=== PATIENT | male | born 1965 | race African-American/Black ===

== ENCOUNTER 2018-05-28 17:38 | Inpatient (IN) | payer OTHER ==
[~2018-05-28] VITALS: Ht 163.8 cm; Wt 87.6 kg
[2018-05-28] MEDS ORDERED: SODIUM CHLORIDE 0.9% 1,000 ML IV ONE ×2 (18:07→19:07)
[2018-05-28] MEDS ORDERED: ONDANSETRON HCL 4MG/2ML INJ IV STA (18:07)
[2018-05-28 18:57] LABS: BASOPHILS % 0.4 % (0.0-2.0); HEMOGLOBIN. 18.8 g/dL (14.0-18.0); LYMPHOCYTES % 7.1 % (20.0-50.0); MEAN CORPUSCULAR HEMOGLOBIN 27.7 pg (28.0-32.0); MEAN CORPUSCULAR VOLUME 88.8 fL (80.0-94.0); MEAN PLATELET VOLUME 10.8 fl (7.4-10.4); MONOCYTES % 2.7 % (2.0-8.0); NEUTROPHILS % 89.8 % (40.0-76.0); PLATELET 289 x1000/uL (130-400); RED BLOOD CELL COUNT 6.78 mill/uL (4.7-6.1); RED CELL DISTRIBUTION WIDTH 15.5 % (11.6-14.6)
[2018-05-28 19:00] LABS: CHLORIDE 109 mEq/L (98-107)
[2018-05-28 19:01] LABS: INR 1.1; PARTIAL THROMBOPLASTIN TIME 24.8 sec (23.4-31.0); PROTHROMBIN TIME 10.6 sec (9.1-11.1)
[2018-05-28 19:03] LABS: HEMATOCRIT. 60.2 % (42.0-52.0)
[2018-05-28 19:04] LABS: ETHANOL BLOOD < 10 mg/dL
[2018-05-28 19:07] LABS: LDL CHOLESTEROL 230 mg/dL (5-100)
[2018-05-28 19:08] LABS: CREATINE KINASE 717 IU/L (39-308)
[2018-05-28] MEDS ORDERED: INSULIN REGULAR (HUMULIN R) 300UNITS/3ML IV ONE (19:15)
[2018-05-28 19:43] LABS: BG BASE EXCESS -14.1 mmol/L (-2.0-2.0); BG CARBOXYHEMOGLOBIN 0.3 % (0.5-1.5); BG DEOXYHEMOGLOBIN 4.1 % (0.0-5.0); BG FRACTION INSPIRED OXYGEN 21; BG HCO3 ACT 10.9 mmol/L (22.0-26.0); BG METHEMOGLOBIN 0.7 % (0.0-1.5); BG OXYGEN SATURATION 95.9 % (92.0-98.5); BG OXYHEMOGLOBIN 94.9 % (94.0-97.0); BG PCO2 25.9 mmHg (35.0-45.0); BG PH 7.243 (7.350-7.450); BG PO2 89.9 mmHg (75.0-100.0); BG SAMPLE SITE RIGHT BRACHIAL; BG TOTAL HEMOGLOBIN 19.7 g/dL (12.0-18.0); BG VENT MODE ROOM AIR
[2018-05-28 20:30] VITALS: BP 158/90
[2018-05-28 20:30] LABS: CLARITY URINE CLEAR (CLEAR); COLOR URINE YELLOW (YELLOW); KETONES URINE 3+ (NEGATIVE); LEUKOCYTE ESTERASE URINE NEGATIVE (NEGATIVE); NITRITE URINE NEGATIVE (NEGATIVE); OCCULT BLOOD URINE 3+ (NEGATIVE); PROTEIN URINE 2+ (NEGATIVE); SPECIFIC GRAVITY URINE 1.029 (1.005-1.030); UROBILINOGEN URINE 0.2 E.U./dL (0.2-1.0)
[2018-05-28] MEDS ORDERED: INSULIN REGULAR (DRIP) 100 UNITS in SODIUM CHLORIDE 0.9% 100 ML IV ONE (20:30)
[2018-05-28] MEDS ORDERED: INSULIN REGULAR (DRIP) 100 UNITS in SODIUM CHLORIDE 0.9% 99 ML IV NR (20:38)
[2018-05-28 20:52] LABS: *AMPHETAMINES SCREEN URINE NEGATIVE (NEGATIVE); *BARBITURATES SCREEN URINE NEGATIVE (NEGATIVE)
[2018-05-28 20:53] LABS: *BENZODIAZEPINES SCREEN URINE NEGATIVE (NEGATIVE); *COCAINE SCREEN URINE NEGATIVE (NEGATIVE); CANNABINOID URINE SCREEN NEGATIVE (NEGATIVE); METHADONE URINE SCREEN NEGATIVE (NEGATIVE); OPIATES URINE SCREEN NEGATIVE (NEGATIVE); PHENCYCLIDINE URINE SCREEN NEGATIVE (NEGATIVE)
[2018-05-28 22:30] VITALS: BP_SYST 158; BP_SYST 168; BP_DIAS 116; BP_DIAS 90
[2018-05-28 23:00] VITALS: BP 135/103
[2018-05-28 23:30] VITALS: BP 147/90
[2018-05-28] MEDS ORDERED: SODIUM CHLORIDE 0.9% 1,000 ML IV SCH (23:35)
[2018-05-28] MEDS ORDERED: ONDANSETRON HCL 4MG/2ML INJ IV PRN (23:45)
[2018-05-28] MEDS ORDERED: DEXT 5%/0.9% NACL 1,000 ML IV PRN (23:45)
[2018-05-28] MEDS ORDERED: IPRATROPIUM/ALBUTEROL 0.5-3(2.5)MG/3ML NEB INH PRN (23:45)
[2018-05-28] MEDS ORDERED: INSULIN REGULAR (DRIP) 100 UNITS in SODIUM CHLORIDE 0.9% 100 ML IV SCH (23:45)
[2018-05-28] MEDS ORDERED: DEXT 5%/0.9% NACL KCL 20MEQ/L 1,000 ML IV PRN (23:45)
[2018-05-29] VITALS (54 sets, daily range): BP systolic 113–188; BP diastolic 42–115
[2018-05-29 00:59] LABS: PHOSPHORUS 3.1 mg/dL (2.5-4.9)
[2018-05-29] MEDS: LORAZEPAM 0.5MG TABLET PO PRN ×2 (01:02→09:19)
[2018-05-29 02:44] LABS: CHLORIDE 127 mEq/L (98-107)
[2018-05-29] MEDS ORDERED: INSULIN REGULAR (DRIP) 100 UNITS in SODIUM CHLORIDE 0.9% 100 ML IV SCH (03:12)
[2018-05-29] MEDS ORDERED: DEXTROSE 50% WATER 50ML SYRINGE IV PRN ×3 (03:15→09:30)
[2018-05-29] MEDS: BLOOD SUGAR DIAGNOSTIC STRIP TEST SCH ×10 (04:48→21:00)
[2018-05-29 06:18] LABS: BASOPHILS % 0.5 % (0.0-2.0); HEMATOCRIT. 56.1 % (42.0-52.0); HEMOGLOBIN. 18.2 g/dL (14.0-18.0); LYMPHOCYTES % 9.5 % (20.0-50.0); MEAN CORPUSCULAR HEMOGLOBIN 27.6 pg (28.0-32.0); MEAN CORPUSCULAR VOLUME 84.8 fL (80.0-94.0); MEAN PLATELET VOLUME 10.2 fl (7.4-10.4); MONOCYTES % 6.3 % (2.0-8.0); NEUTROPHILS % 83.7 % (40.0-76.0); PLATELET 265 x1000/uL (130-400); RED BLOOD CELL COUNT 6.62 mill/uL (4.7-6.1); RED CELL DISTRIBUTION WIDTH 14.4 % (11.6-14.6)
[2018-05-29 06:25] LABS: CHLORIDE 134 mEq/L (98-107)
[2018-05-29 06:40] LABS: LDL CHOLESTEROL 200 mg/dL (5-100)
[2018-05-29 06:42] LABS: HDL CHOLESTEROL 51 mg/dL (40-59)
[2018-05-29 06:48] LABS: CREATINE KINASE MB FRACTION 1.3 ng/mL (0.5-3.6)
[2018-05-29 06:56] LABS: CREATINE KINASE 2875 IU/L (39-308)
[2018-05-29] MEDS ORDERED: SODIUM BICARBONATE 8.4% 1 MEQ/ML 50ML SYR IV SCH (07:15)
[2018-05-29] MEDS: DEXT 5%/0.2% NACL 1,000 ML IV SCH ×2 (07:48→13:45)
[2018-05-29] MEDS ORDERED: PNEUMOCOCCAL 23-VAL P-SAC VAC 0.5 ML IM ONE (08:00)
[2018-05-29] MEDS: ENOXAPARIN 40MG/0.4ML SYR SUBCUT SCH (09:27)
[2018-05-29] MEDS ORDERED: LORAZEPAM 2MG/ML CPJ IV NR ×2 (09:30→11:00)
[2018-05-29 09:39] LABS: BG CARBOXYHEMOGLOBIN 0.6 % (0.5-1.5); BG DEOXYHEMOGLOBIN 2.3 % (0.0-5.0); BG FRACTION INSPIRED OXYGEN 28; BG HCO3 ACT 27.6 mmol/L (22.0-26.0); BG METHEMOGLOBIN 0.4 % (0.0-1.5); BG OXYGEN SATURATION 97.7 % (92.0-98.5); BG OXYHEMOGLOBIN 96.7 % (94.0-97.0); BG PCO2 42.3 mmHg (35.0-45.0); BG PH 7.433 (7.350-7.450); BG PO2 99.5 mmHg (75.0-100.0); BG SAMPLE SITE RIGHT RADIAL; BG TOTAL HEMOGLOBIN 16.9 g/dL (12.0-18.0); BG VENT MODE NASAL CANNULA
[2018-05-29 09:51] LABS: CHLORIDE 134 mEq/L (98-107)
[2018-05-29 10:09] LABS: T4 FREE 1.12 ng/dL (0.76-1.46)
[2018-05-29] MEDS: AMLODIPINE 5MG TABLET PO SCH ×2 (11:15→21:16)
[2018-05-29] MEDS: INSULIN LISPRO 100 UNITS/ML SUBCUT SCH ×3 (12:00→21:00)
[2018-05-29] MEDS ORDERED: INSULIN LISPRO 100 UNITS/ML SUBCUT SCH (12:00)
[2018-05-29] MEDS: INSULIN GLARGINE UD 100 UNITS/ML SYR SUBCUT SCH ×2 (13:32→21:17)
[2018-05-29 13:44] LABS: CHLORIDE 134 mEq/L (98-107)
[2018-05-29] MEDS: LOSARTAN POTASSIUM 50 MG TABLET PO SCH ×2 (14:39→21:16)
[2018-05-29] MEDS: CLONIDINE 0.1MG TABLET PO PRN (14:40)
[2018-05-29 15:22] LABS: CHLORIDE 134 mEq/L (98-107)
[2018-05-29 15:32] LABS: CREATINE KINASE MB FRACTION 2.6 ng/mL (0.5-3.6)
[2018-05-29 15:43] LABS: CREATINE KINASE 6871 IU/L (39-308)
[2018-05-29] MEDS: DEXTROSE 5% WATER 1,000 ML IV SCH ×2 (17:29→23:05)
[2018-05-29] MEDS: NICOTINE 21MG PATCH TD SCH (21:16)
[2018-05-30] VITALS (39 sets, daily range): BP systolic 82–165; BP diastolic 17–84
[2018-05-30] MEDS: BLOOD SUGAR DIAGNOSTIC STRIP TEST SCH ×4 (06:21→21:28)
[2018-05-30] MEDS ORDERED: INSULIN LISPRO 100 UNITS/ML SUBCUT NR ×2 (07:00→10:45)
[2018-05-30 07:04] LABS: BASOPHILS % 0.7 % (0.0-2.0); HEMATOCRIT. 47.1 % (42.0-52.0); HEMOGLOBIN. 15.1 g/dL (14.0-18.0); MEAN CORPUSCULAR HEMOGLOBIN 27.4 pg (28.0-32.0); MEAN CORPUSCULAR VOLUME 85.7 fL (80.0-94.0); MEAN PLATELET VOLUME 10.2 fl (7.4-10.4); MONOCYTES % 5.4 % (2.0-8.0); NEUTROPHILS % 82.9 % (40.0-76.0); PLATELET 195 x1000/uL (130-400); RED CELL DISTRIBUTION WIDTH 14.6 % (11.6-14.6)
[2018-05-30] MEDS: DEXTROSE 5% WATER 1,000 ML IV SCH (07:14)
[2018-05-30] MEDS: INSULIN LISPRO 100 UNITS/ML SUBCUT SCH ×6 (07:15→21:35)
[2018-05-30 07:17] LABS: PHOSPHORUS 3.3 mg/dL (2.5-4.9)
[2018-05-30] MEDS ORDERED: SODIUM CHLORIDE 0.45% 1,000 ML IV SCH (07:30)
[2018-05-30] MEDS: AMLODIPINE 5MG TABLET PO SCH ×2 (08:16→21:00)
[2018-05-30] MEDS: NICOTINE 21MG PATCH TD SCH (08:16)
[2018-05-30] MEDS: CLONIDINE 0.1MG TABLET PO PRN (08:16)
[2018-05-30] MEDS: LOSARTAN POTASSIUM 50 MG TABLET PO SCH ×2 (08:16→21:00)
[2018-05-30] MEDS: ENOXAPARIN 40MG/0.4ML SYR SUBCUT SCH (08:25)
[2018-05-30] MEDS: SODIUM BICARBONATE 50 MEQ in SODIUM CHLORIDE 0.45% 1,000 ML IV SCH ×2 (09:18→18:38)
[2018-05-30] MEDS: INSULIN GLARGINE UD 100 UNITS/ML SYR SUBCUT SCH ×2 (10:00→21:35)
[2018-05-30] MEDS ORDERED: INFLUENZA VIRUS VACCINE(AFLURIA) 0.5ML SYR IM ONE (15:30)
[2018-05-30] MEDS: METOPROLOL TARTRATE 50MG TABLET PO SCH (21:00)
[2018-05-31] VITALS (7 sets, daily range): BP systolic 108–147; BP diastolic 60–95
[2018-05-31] MEDS: SODIUM BICARBONATE 50 MEQ in SODIUM CHLORIDE 0.45% 1,000 ML IV SCH (04:46)
[2018-05-31 06:49] LABS: BASOPHILS % 0.5 % (0.0-2.0); EOSINOPHILS % 0.5 % (0.0-5.0); HEMATOCRIT. 41.8 % (42.0-52.0); HEMOGLOBIN. 13.6 g/dL (14.0-18.0); MEAN CORPUSCULAR HEMOGLOBIN 27.7 pg (28.0-32.0); MEAN CORPUSCULAR VOLUME 85.1 fL (80.0-94.0); MEAN PLATELET VOLUME 9.8 fl (7.4-10.4); MONOCYTES % 7.3 % (2.0-8.0); NEUTROPHILS % 67.7 % (40.0-76.0); PLATELET 144 x1000/uL (130-400); RED BLOOD CELL COUNT 4.91 mill/uL (4.7-6.1); RED CELL DISTRIBUTION WIDTH 13.8 % (11.6-14.6)
[2018-05-31] MEDS: BLOOD SUGAR DIAGNOSTIC STRIP TEST SCH ×4 (07:20→21:22)
[2018-05-31] MEDS: AMLODIPINE 5MG TABLET PO SCH (09:00)
[2018-05-31] MEDS: LOSARTAN POTASSIUM 50 MG TABLET PO SCH (09:00)
[2018-05-31] MEDS: METOPROLOL TARTRATE 50MG TABLET PO SCH ×2 (09:00→21:20)
[2018-05-31] MEDS: INSULIN LISPRO 100 UNITS/ML SUBCUT SCH ×7 (09:13→21:21)
[2018-05-31] MEDS: NICOTINE 21MG PATCH TD SCH (09:16)
[2018-05-31] MEDS: ENOXAPARIN 40MG/0.4ML SYR SUBCUT SCH (09:16)
[2018-05-31] MEDS: INSULIN GLARGINE UD 100 UNITS/ML SYR SUBCUT SCH ×2 (10:57→21:22)
[2018-05-31] MEDS: SODIUM CHLORIDE 0.45% 1,000 ML IV SCH (10:59)
[2018-06-01 04:00] VITALS: BP 155/92
[2018-06-01] MEDS: BLOOD SUGAR DIAGNOSTIC STRIP TEST SCH ×4 (06:49→20:11)
[2018-06-01] MEDS: SODIUM CHLORIDE 0.45% 1,000 ML IV SCH ×2 (07:02→15:00)
[2018-06-01 08:00] VITALS: BP 135/80
[2018-06-01] MEDS ORDERED: GLIPIZIDE 5MG TABLET PO SCH (08:19)
[2018-06-01] MEDS: METOPROLOL TARTRATE 50MG TABLET PO SCH ×2 (08:24→20:42)
[2018-06-01] MEDS: ENOXAPARIN 40MG/0.4ML SYR SUBCUT SCH (08:24)
[2018-06-01] MEDS: NICOTINE 21MG PATCH TD SCH (08:24)
[2018-06-01] MEDS: INSULIN LISPRO 100 UNITS/ML SUBCUT SCH ×7 (08:34→20:43)
[2018-06-01 09:37] LABS: BASOPHILS % 0.7 % (0.0-2.0); HEMATOCRIT. 45.4 % (42.0-52.0); HEMOGLOBIN. 14.8 g/dL (14.0-18.0); LYMPHOCYTES % 31.1 % (20.0-50.0); MEAN CORPUSCULAR HEMOGLOBIN 27.5 pg (28.0-32.0); MEAN CORPUSCULAR VOLUME 84.2 fL (80.0-94.0); MEAN PLATELET VOLUME 10.2 fl (7.4-10.4); MONOCYTES % 6.9 % (2.0-8.0); NEUTROPHILS % 59.3 % (40.0-76.0); PLATELET 153 x1000/uL (130-400); RED BLOOD CELL COUNT 5.39 mill/uL (4.7-6.1); RED CELL DISTRIBUTION WIDTH 13.5 % (11.6-14.6)
[2018-06-01] MEDS: INSULIN GLARGINE UD 100 UNITS/ML SYR SUBCUT SCH ×2 (10:40→21:15)
[2018-06-01 10:48] LABS: CHLORIDE 109 mEq/L (98-107)
[2018-06-01 11:39] LABS: CREATINE KINASE 1458 IU/L (39-308)
[2018-06-01 11:58] VITALS: BP 119/67
[2018-06-01] MEDS: PIOGLITAZONE 15MG TABLET PO SCH (13:48)
[2018-06-01 16:50] VITALS: BP 132/93
[2018-06-01] MEDS ORDERED: GLIPIZIDE 10MG TABLET PO SCH (17:20)
[2018-06-01 19:52] VITALS: BP 126/86
[2018-06-02] VITALS: BP 125/64
[2018-06-02] MEDS: SODIUM CHLORIDE 0.45% 1,000 ML IV SCH (01:00)
[2018-06-02 03:47] VITALS: BP 133/90
[2018-06-02] MEDS: BLOOD SUGAR DIAGNOSTIC STRIP TEST SCH ×2 (06:24→12:37)
[2018-06-02] MEDS: INSULIN LISPRO 100 UNITS/ML SUBCUT SCH ×4 (07:16→14:09)
[2018-06-02 07:57] VITALS: BP 137/90
[2018-06-02] MEDS: ENOXAPARIN 40MG/0.4ML SYR SUBCUT SCH (08:09)
[2018-06-02] MEDS: PIOGLITAZONE 15MG TABLET PO SCH (08:09)
[2018-06-02] MEDS: METOPROLOL TARTRATE 50MG TABLET PO SCH (08:09)
[2018-06-02] MEDS: NICOTINE 21MG PATCH TD SCH (08:09)
[2018-06-02] MEDS ORDERED: LINAGLIPTIN 5MG TABLET PO SCH (09:00)
[2018-06-02 10:44] LABS: BASOPHILS % 0.9 % (0.0-2.0); EOSINOPHILS % 2.3 % (0.0-5.0); HEMATOCRIT. 42.5 % (42.0-52.0); HEMOGLOBIN. 13.8 g/dL (14.0-18.0); LYMPHOCYTES % 28.1 % (20.0-50.0); MEAN CORPUSCULAR HEMOGLOBIN 27.3 pg (28.0-32.0); MEAN CORPUSCULAR VOLUME 84.2 fL (80.0-94.0); MEAN PLATELET VOLUME 9.9 fl (7.4-10.4); MONOCYTES % 8.3 % (2.0-8.0); NEUTROPHILS % 60.4 % (40.0-76.0); PLATELET 125 x1000/uL (130-400); RED BLOOD CELL COUNT 5.05 mill/uL (4.7-6.1); RED CELL DISTRIBUTION WIDTH 13.3 % (11.6-14.6)
[2018-06-02] MEDS: INSULIN GLARGINE UD 100 UNITS/ML SYR SUBCUT SCH (10:47)
[2018-06-02 11:24] LABS: CHLORIDE 110 mEq/L (98-107)
[2018-06-02 11:35] LABS: CREATINE KINASE 725 IU/L (39-308)
[2018-06-02 12:28] VITALS: BP 110/76
[2018-06-02 13:26] VITALS: BP 110/76
[2018-06-02 15:58] VITALS: BP 136/96
== END 2018-06-02 17:35 | disposition home or self-care (01) | DRG 469 ==
LOC: ER 17:38 → MICUNO 19:14 → EDBEDREQTM 19:46 → EDBEDREQSVC 19:46 → EDBEDREQ 19:46 → ENRESERV 19:59 → 6WST 05-30 22:50
PROVIDERS: ADMIT Internal Medicine; ATTEND Internal Medicine
DX: N17.9 Acute kidney failure, unspecified (principal); G93.41 Metabolic encephalopathy; E11.10 Type 2 diabetes mellitus with ketoacidosis without coma; E87.0 Hyperosmolality and hypernatremia; M62.82 Rhabdomyolysis; E66.01 Morbid (severe) obesity due to excess calories; E87.1 Hypo-osmolality and hyponatremia; E87.5 Hyperkalemia; R00.0 Tachycardia, unspecified; I10 Essential (primary) hypertension; E78.5 Hyperlipidemia, unspecified; D72.829 Elevated white blood cell count, unspecified; E87.8 Other disorders of electrolyte and fluid balance, not elsewhere classified; E86.0 Dehydration; F17.210 Nicotine dependence, cigarettes, uncomplicated; K59.00 Constipation, unspecified; E05.90 Thyrotoxicosis, unspecified without thyrotoxic crisis or storm; Z83.3 Family history of diabetes mellitus; Z71.6 Tobacco abuse counseling; Z68.32 Body mass index [BMI] 32.0-32.9, adult
CPT/HCPCS: 36415; 36600; 70551; 71045; 74176; 80048; 80061; 80305; 80320; 82010; 82375; 82550; 82553; 82805; 82962; 83036; 83520; 83721; 83735; 83880; 83930; 83935; 84100; 84439; 84443; 84481; 84484; 86376; 90686; 90732; 93005; 93970; 96374; 97162; 99285; J1650; J1815; J2060; J2405; J3490; J7030; J7042; J7050; J7070; A4315; G0480

== ENCOUNTER 2018-07-10 16:20 | Emergency (ER) | payer OTHER ==
[~2018-07-10] VITALS: Ht 162.6 cm; Wt 92.0 kg
[2018-07-10 16:36] VITALS: BP 171/92
[2018-07-10] MEDS ORDERED: METO-539 PO (16:42)
[2018-07-10] MEDS ORDERED: PIOG30TA27 PO (16:42)
[2018-07-10] MEDS ORDERED: SITA100T11 PO (16:42)
== END 2018-07-10 17:35 | disposition home or self-care (01) ==
LOC: ER 16:20
DX: Z76.0 Encounter for issue of repeat prescription (principal); I10 Essential (primary) hypertension; E11.9 Type 2 diabetes mellitus without complications
CPT/HCPCS: 82962; 99283

== ENCOUNTER 2024-04-20 20:22 | Emergency (ER) | payer MEDICAID, OTHER ==
[~2024-04-20] VITALS: Ht 165.1 cm; Wt 97.3 kg
[~2024-04-20 20:22] MED LIST: INSU100I24 SQ; INSU100I28 SQ; LISI20TA31 MT; PIOG30TA71 PO; SITA100T11 PO
[2024-04-20 20:28] VITALS: O2SAT 99
[2024-04-20 20:34] VITALS: BP 174/122; PULSE 95; RESP 16; TEMP 37
[2024-04-20 22:54] LABS: CLARITY URINE CLEAR (CLEAR); COLOR URINE RED (YELLOW); GLUCOSE URINE NEGATIVE (NEGATIVE); KETONES URINE NEGATIVE (NEGATIVE); LEUKOCYTE ESTERASE URINE TRACE (NEGATIVE); NITRITE URINE NEGATIVE (NEGATIVE); OCCULT BLOOD URINE 3+ (NEGATIVE); PH URINE 6.5 (4.5-8.0); PROTEIN URINE 1+ (NEGATIVE); SPECIFIC GRAVITY URINE 1.015 (1.005-1.030)
[2024-04-20 23:16] LABS: BACTERIA URINE TRACE; RBC URINE TNTC /hpf (0-2); SQUAMOUS EPITHELIAL CELL URINE RARE /lpf (RARE/1+); WBC URINE 0-2 /hpf (0-2)
[2024-04-21 00:04] LABS: BASOPHILS % 1.3 % (0.0-2.0); EOSINOPHILS % 1.9 % (0.0-5.0); HEMATOCRIT. 42.3 % (42.0-52.0); HEMOGLOBIN. 13.7 g/dL (14.0-18.0); MEAN CORPUSCULAR HEMOGLOBIN 27.6 pg (28.0-32.0); MEAN CORPUSCULAR HGB CONC 32.5 g/dL (31.0-37.0); MEAN CORPUSCULAR VOLUME 84.8 fL (80.0-94.0); MEAN PLATELET VOLUME 9.4 fl (7.4-10.4); MONOCYTES % 9.1 % (2.0-8.0); NEUTROPHILS % 54.7 % (40.0-76.0); PLATELET 237 x1000/uL (130-400); RED BLOOD CELL COUNT 4.98 mill/uL (4.7-6.1); RED CELL DISTRIBUTION WIDTH 14.2 % (11.6-14.6); WHITE BLOOD COUNT 7.8 x1000/uL (4.5-11.0)
[2024-04-21 00:09] LABS: CALCIUM 9.5 mg/dL (8.7-10.4)
[2024-04-21 00:14] LABS: CREATININE 1.9 mg/dL (0.6-1.3)
[2024-04-21] MEDS ORDERED: IBUPROFEN 400MG TABLET PO NR (00:30)
[2024-04-21 01:45] LABS: ALANINE AMINOTRANSFERASE 25 IU/L (10-49); ALBUMIN 4.5 g/dL (3.2-4.8); ASPARTATE AMINOTRANSFERASE 28 IU/L (<34); BILIRUBIN DIRECT 0.1 mg/dL (<=3.0); BILIRUBIN TOTAL 0.4 mg/dL (0.1-1.0)
[2024-04-21 01:46] LABS: PROTEIN TOTAL 7.4 g/dL (6.0-8.3)
[2024-04-21] MEDS ORDERED: CEFP100T8 MT (02:28)
== END 2024-04-21 07:59 | disposition home or self-care (01) ==
LOC: ER 20:28
DX: N39.0 Urinary tract infection, site not specified (principal); I10 Essential (primary) hypertension; E11.9 Type 2 diabetes mellitus without complications; E78.00 Pure hypercholesterolemia, unspecified; Z79.899 Other long term (current) drug therapy
CPT/HCPCS: 36415; 80048; 80076; 81003; 82962; 85025; 99283

== ENCOUNTER 2025-01-15 14:11 | Emergency (ER) | payer OTHER ==
[~2025-01-15] VITALS: Ht 162.6 cm; Wt 95.0 kg
[~2025-01-15 14:11] MED LIST changes: -LISI20TA31 MT
[2025-01-15 14:25] VITALS: O2SAT 98
[2025-01-15] MEDS ORDERED: LIDO-53 TP (14:40)
[2025-01-15] MEDS: DEXAMETHASONE 10 MG/ML VIAL IV ONE (15:05)
[2025-01-15] MEDS: KETOROLAC 30MG/ML VIAL IM ONE (15:05)
[2025-01-15 15:10] VITALS: BP 122/88; PULSE 96; RESP 18; TEMP 36.9; O2SAT 98
== END 2025-01-15 15:20 | disposition home or self-care (01) ==
LOC: ER 14:11
DX: M54.9 Dorsalgia, unspecified (principal); E11.9 Type 2 diabetes mellitus without complications; I10 Essential (primary) hypertension; M54.31 Sciatica, right side; Z79.899 Other long term (current) drug therapy
CPT/HCPCS: 96372; 96374; 99284; J1100; J1885; Z7610